=== PATIENT | female | born 1960 | race Caucasian/White ===

== ENCOUNTER → 2021-04-29 | Outpatient (CLI) | payer OTHER | LOC: RAD 16:20 | PROVIDERS: ATTEND Family Medicine | DX: Z12.31 Encounter for screening mammogram for malignant neoplasm of breast (principal); N64.89 Other specified disorders of breast ==

== ENCOUNTER → 2021-05-10 | Outpatient (CLI) | payer OTHER ==
[~2021-05-10] MED LIST: LEVOTHYROXINE125 MC1 PO; VITAMIN D210 MCG; WELLBUTRIN SR150 M1 PO; XANAX1 MG PO
== END ==
LOC: LAB 14:09
PROVIDERS: ATTEND Student in an Organized Health Care Education/Training Program
DX: Z01.812 Encounter for preprocedural laboratory examination (principal); Z20.822 Contact with and (suspected) exposure to COVID-19

== ENCOUNTER → 2021-05-11 | Outpatient (CLI) | payer OTHER ==
[~2021-05-11] VITALS: Ht 160 cm; Wt 70.3 kg
[~2021-05-11] MED LIST changes: -VITAMIN D210 MCG; +VITAMIN D210 MCG PO
== END | disposition home or self-care (01) ==
LOC: GI
PROVIDERS: ATTEND Internal Medicine
DX: D50.0 Iron deficiency anemia secondary to blood loss (chronic) (principal); K55.21 Angiodysplasia of colon with hemorrhage; K57.30 Diverticulosis of large intestine without perforation or abscess without bleeding; E03.9 Hypothyroidism, unspecified; F32.9 Major depressive disorder, single episode, unspecified; F41.9 Anxiety disorder, unspecified; Z98.890 Other specified postprocedural states; Z79.899 Other long term (current) drug therapy; Z98.51 Tubal ligation status; Z20.822 Contact with and (suspected) exposure to COVID-19; Z87.891 Personal history of nicotine dependence
CPT/HCPCS: 62110; 62900

== ENCOUNTER → 2021-05-18 | Outpatient (CLI) | payer OTHER ==
[~2021-05-18] VITALS: Ht 160 cm; Wt 68.0 kg
--- NOTE | 2021-05-21 11:07 | PATH ---
[facility] [address] [place] [address] PATHOLOGY RPT PROCEDURE Name: MONAE VILLALOBOS Room #: REG [facility]..#: [id number] Admission: 05/18/21 Date of : 60 Discharge: Report #: [id number] Path Case #: [id number] [facility] Accession Number: [id number] . 01 Material submitted: . small bowel - SMALL BOWEL BIOPSY FOR CELIAC . 01 Clinical history: . EGD ANEMIA . 02 Diagnosis: Small bowel mucosa, rule out celiac disease, endoscopic biopsy: - No diagnostic abnormalities present. - Negative for villous blunting or increase in intraepithelial lymphocytes. 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 02 Electronically signed: . Dipti Bliss MD, Pathologist NPI- [id number] . 01 Gross description: . The specimen is submitted in formalin, labeled "Small, Monae, small bowel BX". Received are multiple segments of pale guerin tissue ranging in size from 0.3 to 0.4 cm in maximum dimensions. The specimen is submitted entirely in cassette A1. ([facility]; 05/18/2021) NRI/NRI 05/18/20212 Local . 02 Pathologist provided ICD-10: D64.9 . 02 CPT . 117115 Specimen Comment: A courtesy copy of this report has been sent to [phone] Specimen Comment: [id number] Specimen Comment: Report sent to AND DR CASAS Specimen Comment: A duplicate report has been generated due to demographic updates. Performed at: [address] [id number] MD Gustavo Reddy MD Phone: [phone] Performed at: [address] [address] PATHOLOGY RPT PROCEDURE Name: MONAE VILLALOBOS Room #: REG CLI [facility].#: [id number] Admission: 05/18/21 Date of : 60 Discharge: Report #: [id number] Path Case #: [id number] [address] [id number] MD Dipti Bliss MD Phone: [phone]
== END | disposition home or self-care (01) ==
LOC: GI 07:09
PROVIDERS: ATTEND Internal Medicine
DX: D50.9 Iron deficiency anemia, unspecified (principal); K44.9 Diaphragmatic hernia without obstruction or gangrene; E03.9 Hypothyroidism, unspecified; F32.9 Major depressive disorder, single episode, unspecified; F41.9 Anxiety disorder, unspecified; Z98.890 Other specified postprocedural states; Z79.899 Other long term (current) drug therapy; Z20.822 Contact with and (suspected) exposure to COVID-19; Z87.891 Personal history of nicotine dependence; Z98.51 Tubal ligation status; Z88.0 Allergy status to penicillin; Z88.8 Allergy status to other drugs, medicaments and biological substances
CPT/HCPCS: 62110; 62900

== ENCOUNTER → 2021-06-16 | Outpatient (CLI) | payer OTHER ==
[2021-06-16 17:42] LABS: HEMOGLOBIN 7.9 gm/dL (12.0-15.0); MCV 59.5 fL (80.0-100.0)
[2021-06-16 17:44] LABS: ABSOLUTE RETIC COUNT 0.0846 10^6/uL; MCH 16.9 pg (26.0-34.0); MCHC 28.4 g/dL (28.0-37.0); PLATELET COUNT 433 thou/uL (150-400); RDW 18.3 % (10.5-14.5); WBC 6.9 thou/uL (4.0-11.0)
[2021-06-16 17:51] LABS: % SATURATION 3 % (20-39); ALBUMIN 4.2 g/dL (3.4-5.0); ANION GAP 9 mmol/L (7-16); BUN 21 mg/dL (7-18); CALCIUM 8.9 mg/dL (8.5-10.1); CHLORIDE 105 mmol/L (98-107); CO2 25 mmol/L (21-32); CREATININE 0.8 mg/dL (0.6-1.0); GLUCOSE 79 mg/dL (74-106); IRON 15 ug/dL (50-170); POTASSIUM 4.3 mmol/L (3.5-5.1); SGOT 15 U/L (15-37); SGPT 18 U/L (30-65); SODIUM 139 mmol/L (136-145); TIBC 558 ug/dL (250-450); TOTAL BILIRUBIN 0.6 mg/dL (0.2-1.0); TOTAL PROTEIN 7.7 g/dL (6.4-8.2)
[2021-06-16 18:05] LABS: FOLIC ACID 19.9 ng/mL (8.6-58.9)
[2021-06-16 18:44] LABS: ABSOLUTE NEUTROPHILS 4.1 thou/uL (1.4-8.2); ANISOCYTOSIS 1+; HYPOCHROMASIA 1+; MICROCYTES 1+
[2021-06-17 00:07] LABS: IgA 293 mg/dL (87-352); IgG 1006 mg/dL (586-1602); IgM 66 mg/dL (26-217)
[2021-06-17 13:08] LABS: ANA INTERPRETATION Negative (Negative)
[2021-06-18 15:07] LABS: KAPPA FREE LIGHT CHAINS 15.3 mg/L (3.3-19.4); KAPPA/LAMBDA RATIO 1.17 (0.26-1.65); LAMBDA FREE LIGHT CHAINS 13.1 mg/L (5.7-26.3)
[2021-06-18 17:07] LABS: BETA-2 MICROGLOBULIN NG/ML 1.6 mg/L (0.6-2.4)
== END ==
LOC: LAB 16:14
PROVIDERS: ATTEND Internal Medicine
DX: D50.0 Iron deficiency anemia secondary to blood loss (chronic) (principal)

== ENCOUNTER → 2021-08-04 | Outpatient (CLI) | payer OTHER ==
[2021-08-04 17:12] LABS: HEMATOCRIT 37.8 % (37.0-47.0); HEMOGLOBIN 11.9 gm/dL (12.0-15.0); MCH 23.6 pg (26.0-34.0); MCHC 31.4 g/dL (28.0-37.0); MCV 75.1 fL (80.0-100.0); PLATELET COUNT 397 thou/uL (150-400); RBC 5.04 mil/uL (4.20-5.00); WBC 6.1 thou/uL (4.0-11.0)
[2021-08-04 17:17] LABS: % SATURATION 10 % (20-39); IRON 41 ug/dL (50-170); POTASSIUM 4.1 mmol/L (3.5-5.1); TIBC 392 ug/dL (250-450); TOTAL BILIRUBIN 0.3 mg/dL (0.2-1.0); TOTAL PROTEIN 7.4 g/dL (6.4-8.2)
[2021-08-04 17:37] LABS: ABSOLUTE NEUTROPHILS 2.7 thou/uL (1.4-8.2); ANISOCYTOSIS 3+; ATYPICAL LYMPHS 1 %; ATYPICAL MONONUCLEARS 1 %; MACROCYTES 2+; MICROCYTES 2+
[2021-08-04 17:38] LABS: OVALOCYTES 1+
== END ==
LOC: LAB 15:37
PROVIDERS: ATTEND Internal Medicine
DX: D50.0 Iron deficiency anemia secondary to blood loss (chronic) (principal)